=== PATIENT | female | born 1995 | race Caucasian/White ===

== ENCOUNTER 2017-03-26 21:43 | Emergency (ER) | payer SELFPAY ==
[~2017-03-26] VITALS: Ht 172.7 cm; Wt 72.6 kg
[~2017-03-26 21:43] MED LIST: DOXYCYCLINE100 MG PO; MOTRIN800 MG PO; VIBRAMYCIN100 MG PO
== END 2017-03-26 23:39 | disposition home or self-care (01) ==
LOC: ED 21:43
DX: S60.221A Contusion of right hand, initial encounter (principal); Z88.0 Allergy status to penicillin; Y04.0XXA Assault by unarmed brawl or fight, initial encounter; Y93.89 Activity, other specified; Y92.9 Unspecified place or not applicable; Y99.9 Unspecified external cause status

== ENCOUNTER 2017-05-12 17:54 | Emergency (ER) | payer OTHER ==
[~2017-05-12] VITALS: Ht 172.7 cm; Wt 74.8 kg
[2017-05-12] MEDS ORDERED: DIFLUCAN150 MG PO (18:10)
== END 2017-05-12 18:23 | disposition home or self-care (01) ==
LOC: ED 17:54
DX: Z20.2 Contact with and (suspected) exposure to infections with a predominantly sexual mode of transmission (principal); R03.0 Elevated blood-pressure reading, without diagnosis of hypertension; F17.200 Nicotine dependence, unspecified, uncomplicated; Z88.0 Allergy status to penicillin

== ENCOUNTER 2017-07-17 09:29 | Emergency (ER) | payer OTHER ==
[~2017-07-17] VITALS: Ht 172.7 cm; Wt 72.6 kg
[~2017-07-17 09:29] MED LIST changes: +DIFLUCAN150 MG PO
[2017-07-17 10:17] LABS: BILIRUBIN NEGATIVE (NEGATIVE); BLOOD NEGATIVE (NEGATIVE); CLARITY CLEAR (CLEAR); COLOR YELLOW (YELLOW); GLUCOSE NEGATIVE (NEGATIVE); KETONE NEGATIVE (NEGATIVE); LEUKO ESTERASE TRACE (NEGATIVE); NITRITE NEGATIVE (NEGATIVE); PH 5.5 (5.0-9.0); SPECIFIC GRAVITY 1.025 (1.005-1.030); UROBILINOGEN 0.2 E.U./dl (0.2-1.0)
[2017-07-17 10:31] LABS: BACTERIA 1+
== END 2017-07-17 11:14 | disposition home or self-care (01) ==
LOC: ED 09:29
PROVIDERS: Nurse Practitioner Family
DX: A64 Unspecified sexually transmitted disease (principal); Z88.0 Allergy status to penicillin

== ENCOUNTER 2017-08-17 16:47 | Emergency (ER) | payer OTHER ==
[~2017-08-17] VITALS: Wt 72.6 kg
[2017-08-17 17:18] LABS: BILIRUBIN 1+ (NEGATIVE); BLOOD NEGATIVE (NEGATIVE); CLARITY SL CLOUDY (CLEAR); COLOR YELLOW (YELLOW); GLUCOSE NEGATIVE (NEGATIVE); KETONE NEGATIVE (NEGATIVE); LEUKO ESTERASE 1+ (NEGATIVE); NITRITE NEGATIVE (NEGATIVE); SPECIFIC GRAVITY >= 1.030 (1.005-1.030)
[2017-08-17 17:29] LABS: BACTERIA 2+
== END 2017-08-17 18:12 | disposition home or self-care (01) ==
LOC: ED 16:47
PROVIDERS: Physician Assistant
DX: N89.8 Other specified noninflammatory disorders of vagina (principal); Z88.0 Allergy status to penicillin

== ENCOUNTER 2018-02-11 08:35 | Emergency (ER) | payer OTHER ==
[~2018-02-11] VITALS: Ht 172.7 cm; Wt 77.1 kg
[2018-02-11 09:01] LABS: BILIRUBIN NEGATIVE (NEGATIVE); BLOOD NEGATIVE (NEGATIVE); CLARITY CLEAR (CLEAR); COLOR YELLOW (YELLOW); GLUCOSE NEGATIVE (NEGATIVE); KETONE NEGATIVE (NEGATIVE); LEUKO ESTERASE NEGATIVE (NEGATIVE); NITRITE NEGATIVE (NEGATIVE); UROBILINOGEN 0.2 E.U./dl (0.2-1.0)
[2018-02-11 09:17] LABS: BACTERIA TRACE; MUCOUS TRACE
[2018-02-13 15:12] LABS: GONOCOCCUS BY NAA Negative (Negative)
== END 2018-02-11 08:56 | disposition home or self-care (01) ==
LOC: ED 08:35
PROVIDERS: Emergency Medicine
DX: Z20.2 Contact with and (suspected) exposure to infections with a predominantly sexual mode of transmission (principal); Z88.0 Allergy status to penicillin

== ENCOUNTER 2018-02-27 15:43 | Emergency (ER) | payer OTHER ==
[~2018-02-27] VITALS: Ht 172.7 cm; Wt 81.6 kg
[2018-02-27 17:17] LABS: BILIRUBIN NEGATIVE (NEGATIVE); BLOOD NEGATIVE (NEGATIVE); CLARITY SL CLOUDY (CLEAR); COLOR YELLOW (YELLOW); GLUCOSE NEGATIVE (NEGATIVE); KETONE NEGATIVE (NEGATIVE); LEUKO ESTERASE NEGATIVE (NEGATIVE); NITRITE NEGATIVE (NEGATIVE); PH 7.5 (5.0-9.0)
[2018-02-27 17:34] LABS: BACTERIA 1+; MUCOUS 1+
== END 2018-02-27 18:43 | disposition home or self-care (01) ==
LOC: ED 15:43
PROVIDERS: Nurse Practitioner
DX: Z20.2 Contact with and (suspected) exposure to infections with a predominantly sexual mode of transmission (principal); Z88.0 Allergy status to penicillin

== ENCOUNTER 2018-08-26 13:39 | Emergency (ER) | payer OTHER ==
[~2018-08-26] VITALS: Ht 172.7 cm; Wt 77.1 kg
[2018-08-26 14:08] LABS: BILIRUBIN NEGATIVE (NEGATIVE); BLOOD NEGATIVE (NEGATIVE); CLARITY CLEAR (CLEAR); COLOR YELLOW (YELLOW); GLUCOSE NEGATIVE (NEGATIVE); KETONE NEGATIVE (NEGATIVE); LEUKO ESTERASE TRACE (NEGATIVE); NITRITE NEGATIVE (NEGATIVE); SPECIFIC GRAVITY 1.025 (1.005-1.030); UROBILINOGEN 0.2 E.U./dl (0.2-1.0)
[2018-08-26 14:17] LABS: BACTERIA 2+; MUCOUS TRACE; RBC 0-2 rbc/hpf (0-2)
== END 2018-08-26 14:14 | disposition home or self-care (01) ==
LOC: ED 13:39
PROVIDERS: Nurse Practitioner Family
DX: Z11.3 Encounter for screening for infections with a predominantly sexual mode of transmission (principal); R03.0 Elevated blood-pressure reading, without diagnosis of hypertension; Z88.0 Allergy status to penicillin

== ENCOUNTER 2019-02-19 12:06 | Emergency (ER) | payer OTHER ==
[~2019-02-19] VITALS: Ht 172.7 cm; Wt 79.4 kg
[2019-02-19 12:32] LABS: BILIRUBIN NEGATIVE (NEGATIVE); BLOOD NEGATIVE (NEGATIVE); CLARITY SL CLOUDY (CLEAR); COLOR YELLOW (YELLOW); GLUCOSE NEGATIVE (NEGATIVE); KETONE TRACE (NEGATIVE); LEUKO ESTERASE NEGATIVE (NEGATIVE); NITRITE NEGATIVE (NEGATIVE); PH 5.5 (5.0-9.0); SPECIFIC GRAVITY 1.025 (1.005-1.030)
[2019-02-19 12:59] LABS: MUCOUS TRACE; RBC 0-2 rbc/hpf (0-2); WBC 0-2 wbc/hpf (0-5)
== END 2019-02-19 13:05 | disposition home or self-care (01) ==
LOC: ED 12:06
PROVIDERS: Emergency Medicine
DX: Z20.2 Contact with and (suspected) exposure to infections with a predominantly sexual mode of transmission (principal); Z88.0 Allergy status to penicillin

== ENCOUNTER 2019-04-10 12:18 | Emergency (ER) | payer OTHER ==
[~2019-04-10] VITALS: Ht 172.7 cm; Wt 81.6 kg
[2019-04-10 13:03] LABS: BILIRUBIN 1+ (NEGATIVE); BLOOD NEGATIVE (NEGATIVE); CLARITY CLOUDY (CLEAR); COLOR YELLOW (YELLOW); GLUCOSE NEGATIVE (NEGATIVE); KETONE NEGATIVE (NEGATIVE); LEUKO ESTERASE TRACE (NEGATIVE); NITRITE NEGATIVE (NEGATIVE); SPECIFIC GRAVITY 1.025 (1.005-1.030)
[2019-04-10 13:34] LABS: EPITHELIAL CELLS 16-20; MUCOUS 3+
[2019-04-10 13:35] LABS: BACTERIA TRACE
[2019-04-12 16:10] LABS: GONOCOCCUS BY NAA Negative (Negative)
== END 2019-04-10 13:17 | disposition home or self-care (01) ==
LOC: ED 12:18
PROVIDERS: Nurse Practitioner Family
DX: Z20.2 Contact with and (suspected) exposure to infections with a predominantly sexual mode of transmission (principal); Z88.0 Allergy status to penicillin

== ENCOUNTER 2019-05-15 13:42 | Emergency (ER) | payer OTHER ==
[~2019-05-15] VITALS: Ht 172.7 cm; Wt 81.6 kg
[2019-05-15 14:07] LABS: BILIRUBIN NEGATIVE (NEGATIVE); BLOOD NEGATIVE (NEGATIVE); CLARITY CLEAR (CLEAR); COLOR YELLOW (YELLOW); GLUCOSE NEGATIVE (NEGATIVE); KETONE NEGATIVE (NEGATIVE); LEUKO ESTERASE 3+ (NEGATIVE); NITRITE NEGATIVE (NEGATIVE); SPECIFIC GRAVITY 1.025 (1.005-1.030); UROBILINOGEN 0.2 E.U./dl (0.2-1.0)
[2019-05-15 14:14] LABS: BACTERIA 2+; WBC 31-40 wbc/hpf (0-5)
== END 2019-05-15 15:12 | disposition home or self-care (01) ==
LOC: ED 13:42
PROVIDERS: Nurse Practitioner Family
DX: N89.8 Other specified noninflammatory disorders of vagina (principal); Z20.2 Contact with and (suspected) exposure to infections with a predominantly sexual mode of transmission; Z88.0 Allergy status to penicillin

== ENCOUNTER 2019-09-19 10:30 | Emergency (ER) | payer OTHER ==
[~2019-09-19] VITALS: Ht 172.7 cm; Wt 81.6 kg
[2019-09-19 11:41] LABS: BILIRUBIN NEGATIVE (NEGATIVE); BLOOD 1+ (NEGATIVE); CLARITY SL CLOUDY (CLEAR); COLOR YELLOW (YELLOW); GLUCOSE NEGATIVE (NEGATIVE); KETONE NEGATIVE (NEGATIVE); LEUKO ESTERASE 1+ (NEGATIVE); NITRITE NEGATIVE (NEGATIVE); PH 5.5 (5.0-9.0); UROBILINOGEN 0.2 E.U./dl (0.2-1.0)
[2019-09-19 11:59] LABS: BACTERIA 2+
[2019-09-19] MEDS ORDERED: DOXYCYCLINE100 M3 PO (12:05)
== END 2019-09-19 12:21 | disposition home or self-care (01) ==
LOC: ED 10:30
PROVIDERS: Physician Assistant
DX: A59.01 Trichomonal vulvovaginitis (principal); Z20.2 Contact with and (suspected) exposure to infections with a predominantly sexual mode of transmission; Z32.02 Encounter for pregnancy test, result negative; Z88.0 Allergy status to penicillin

== ENCOUNTER 2020-01-13 09:06 | Emergency (ER) | payer OTHER ==
[~2020-01-13] VITALS: Ht 172.7 cm; Wt 77.1 kg
[~2020-01-13 09:06] MED LIST changes: +DOXYCYCLINE100 M3 PO
[2020-01-13 10:42] LABS: BILIRUBIN NEGATIVE (NEGATIVE); BLOOD NEGATIVE (NEGATIVE); CLARITY SL CLOUDY (CLEAR); COLOR YELLOW (YELLOW); GLUCOSE NEGATIVE (NEGATIVE); KETONE NEGATIVE (NEGATIVE); LEUKO ESTERASE 2+ (NEGATIVE); NITRITE NEGATIVE (NEGATIVE); SPECIFIC GRAVITY 1.025 (1.005-1.030); UROBILINOGEN 0.2 E.U./dl (0.2-1.0)
[2020-01-13 10:47] LABS: BACTERIA 3+
[2020-01-14 15:05] LABS: GONOCOCCUS BY NAA Negative (Negative)
== END 2020-01-13 10:50 | disposition home or self-care (01) ==
LOC: ED 09:06
PROVIDERS: Nurse Practitioner Family
DX: A59.9 Trichomoniasis, unspecified (principal); Z20.2 Contact with and (suspected) exposure to infections with a predominantly sexual mode of transmission; Z88.0 Allergy status to penicillin; Z79.899 Other long term (current) drug therapy

== ENCOUNTER 2020-02-03 21:08 | Emergency (ER) | payer OTHER ==
[~2020-02-03] VITALS: Ht 172.7 cm; Wt 79.4 kg
[2020-02-03] MEDS ORDERED: CEFADROXIL500 M1 PO (22:26)
== END 2020-02-03 23:25 | disposition home or self-care (01) ==
LOC: ED 21:08
DX: S61.211A Laceration without foreign body of left index finger without damage to nail, initial encounter (principal); Z88.0 Allergy status to penicillin; W26.8XXA Contact with other sharp object(s), not elsewhere classified, initial encounter; Y93.89 Activity, other specified; Y92.89 Other specified places as the place of occurrence of the external cause; Y99.8 Other external cause status

== ENCOUNTER 2020-09-13 12:20 | Emergency (ER) | payer OTHER ==
[~2020-09-13] VITALS: Wt 81.6 kg
[~2020-09-13 12:20] MED LIST changes: +CEFADROXIL500 M1 PO
[2020-09-13 12:48] LABS: BILIRUBIN Negative (Negative); BLOOD Negative (Negative); CLARITY Clear (Clear); COLOR Yellow (Yellow); GLUCOSE Negative (Negative); KETONE Negative (Negative); LEUKO ESTERASE 1+ (Negative); NITRITE Negative (Negative); PH 5.5 (4.5-8.0); UROBILINOGEN 0.2 E.U./dl (0.0-1.0)
[2020-09-13 13:16] LABS: BACTERIA 1+; MUCOUS 1+
== END 2020-09-13 14:16 | disposition home or self-care (01) ==
LOC: ED 12:20
PROVIDERS: Nurse Practitioner Family
DX: Z20.2 Contact with and (suspected) exposure to infections with a predominantly sexual mode of transmission (principal); Z88.0 Allergy status to penicillin

== ENCOUNTER 2022-02-02 14:49 | Emergency (ER) | payer OTHER ==
[~2022-02-02] VITALS: Ht 172.7 cm; Wt 90.7 kg
[2022-02-02 16:36] LABS: BILIRUBIN Negative (Negative); BLOOD Negative (Negative); CLARITY Clear (Clear); COLOR Yellow (Yellow); GLUCOSE Negative (Negative); KETONE Trace (Negative); LEUKO ESTERASE Negative (Negative); NITRITE Negative (Negative); PH 5.5 (4.5-8.0); SPECIFIC GRAVITY >= 1.030 (1.001-1.030)
[2022-02-02 17:13] LABS: BACTERIA TRACE
[2022-02-02] MEDS ORDERED: METRONIDAZOLE500 M1 PO (17:45)
[2022-02-02] MEDS ORDERED: VIBRAMYCIN100 MG PO (17:45)
== END 2022-02-02 17:51 | disposition home or self-care (01) ==
LOC: ED 14:49
PROVIDERS: Physician Assistant
DX: Z20.2 Contact with and (suspected) exposure to infections with a predominantly sexual mode of transmission (principal); Z88.0 Allergy status to penicillin; Z90.89 Acquired absence of other organs

== ENCOUNTER 2022-04-15 12:10 | Emergency (ER) | payer OTHER ==
[~2022-04-15] VITALS: Wt 90.7 kg
[~2022-04-15 12:10] MED LIST changes: +METRONIDAZOLE500 M1 PO
== END 2022-04-15 12:45 | disposition home or self-care (01) ==
LOC: ED 12:10
DX: Z20.2 Contact with and (suspected) exposure to infections with a predominantly sexual mode of transmission (principal)

== ENCOUNTER 2022-09-07 12:47 | Emergency (ER) | payer OTHER ==
[~2022-09-07] VITALS: Ht 172.7 cm; Wt 93.0 kg
== END 2022-09-07 13:24 | disposition home or self-care (01) ==
LOC: ED 12:47
DX: Z20.2 Contact with and (suspected) exposure to infections with a predominantly sexual mode of transmission (principal)

== ENCOUNTER 2023-01-10 10:33 | Emergency (ER) | payer OTHER ==
[~2023-01-10] VITALS: Ht 172.7 cm; Wt 90.7 kg
[2023-01-10 11:15] LABS: BILIRUBIN Negative (Negative); BLOOD Negative (Negative); CLARITY Clear (Clear); COLOR Yellow (Yellow); GLUCOSE Negative (Negative); KETONE Negative (Negative); LEUKO ESTERASE 1+ (Negative); NITRITE Negative (Negative); PH 7.5 (4.5-8.0); SPECIFIC GRAVITY 1.025 (1.001-1.030)
[2023-01-10 11:30] LABS: BACTERIA 2+; EPITHELIAL CELLS 21-30; RBC 0-2 rbc/hpf (0-2)
== END 2023-01-10 13:55 | disposition home or self-care (01) ==
LOC: ED 10:33
PROVIDERS: Emergency Medicine
DX: A64 Unspecified sexually transmitted disease (principal); Z88.0 Allergy status to penicillin; Z79.899 Other long term (current) drug therapy

== ENCOUNTER 2023-03-15 16:49 | Emergency (ER) | payer OTHER ==
[~2023-03-15] VITALS: Ht 172.7 cm; Wt 90.7 kg
== END 2023-03-15 17:24 | disposition home or self-care (01) ==
LOC: ED 16:49
DX: H10.9 Unspecified conjunctivitis (principal); Z88.0 Allergy status to penicillin; Z90.89 Acquired absence of other organs

== ENCOUNTER 2025-06-03 11:17 | Emergency (ER) | payer OTHER ==
[~2025-06-03] VITALS: Ht 172.7 cm; Wt 90.7 kg
[~2025-06-03 11:17] MED LIST changes: +CEFPODOXIME PR100 M1 PO
[2025-06-03] MEDS ORDERED: SODIUM CHLORIDE 0.9% 1,000 ML IV ONE (12:10)
== END 2025-06-03 13:00 | disposition short-term general hospital (02) ==
LOC: ED 11:17
DX: O60.02 Preterm labor without delivery, second trimester (principal); Z88.0 Allergy status to penicillin; Z3A.27 27 weeks gestation of pregnancy